=== PATIENT | female | born 1995 | race American Indian/Alaskan Native ===

== ENCOUNTER 2017-08-10 19:31 | Inpatient (IN) | payer MEDICAID ==
[2017-08-10] MEDS ORDERED: LACTATED RINGERS 1,000 ML ONE (22:10)
[2017-08-10] MEDS ORDERED: SUBLIMAZE IV PRN (22:30)
[2017-08-10] MEDS ORDERED: STADOL IV PRN (22:30)
[2017-08-10] MEDS ORDERED: AMBIEN PO PRN (22:30)
[2017-08-10] MEDS: PITOCin/NS 30 UNIT/500ML 30 UNITS/500 ML BAG IV SCH (22:52)
[2017-08-10] MEDS: LACTATED RINGERS 1,000 ML IV SCH (22:53)
[2017-08-10 22:56] LABS: Hematocrit 34.8 % (30.3-42.9); Hemoglobin 11.5 gm/dl (10.1-14.3); Mean Corpuscular HGB Conc 33 % (30-34); Mean Corpuscular Hemoglobin 29 pg (28-32); Mean Corpuscular Volume 87 fl (79-97); Platelet Count 183 K/mm3 (140-440); Red Cell Distribution Width 14.4 % (13.2-15.2)
[2017-08-10] MEDS ORDERED: PITOCin/NS 20 UNIT/1000ML DRIP 20 UNITS/1,000 ML BAG IV SCH (23:00)
[2017-08-11] MEDS: LACTATED RINGERS 1,000 ML IV SCH ×3 (02:21→17:52)
[2017-08-11] MEDS: PITOCin/NS 30 UNIT/500ML 30 UNITS/500 ML BAG IV SCH ×5 (07:39→17:58)
[2017-08-11] MEDS ORDERED: NARCAN 2 MG/2 ML IV PRN (13:34)
[2017-08-11] MEDS ORDERED: ePHEDrine SULFATE IV PRN (13:34)
--- NOTE | 2017-08-11 13:35 | Anesthesia Consultation ---
Anesthesia Consult and Med Hx Date of service: 08/11/17 - Airway Anesthetic Teeth Evaluation: Good ROM Head & Neck: Adequate Mental/Hyoid Distance: Adequate Mallampati Class: Class II Intubation Access Assessment: Probably Good - Pulmonary Exam CTA: Yes - Cardiac Exam Cardiac Exam: RRR - Pre-Operative Health Status ASA Pre-Surgery Classification: ASA2 Proposed Anesthetic Plan: Epidural - Pulmonary Hx Asthma: No COPD: No Hx Pneumonia: No - Cardiovascular System Hx Hypertension: No - Central Nervous System Hx Seizures: No Hx Psychiatric Problems: No - Endocrine Hx Renal Disease: No Hx End Stage Renal Disease: No Hx Hypothyroidism: No Hx Hyperthyroidism: No - Hematic Hx Anemia: No Hx Sickle Cell Disease: No - Other Systems Hx Alcohol Use: No - Additional Comments Anesthesia Medical History Comments: labor epidural
[2017-08-11] MEDS ORDERED: MARCAINE 0.25% INFILTRATI ONE (13:41)
[2017-08-11] MEDS ORDERED: fentaNYL-BUPIV 2 MCG/ML-0.125% 200 MCG/100 ML BAG EPIDURAL SCH (14:00)
--- NOTE | 2017-08-11 17:06 | History and Physical Report ---
History of Present Illness Date of examination: 08/11/17 Date of admission: 08/10/17 19:31 Chief complaint: I'm here to have my baby History of present illness: Patient is a 22 year old who presents for post dates induction at 41.1 weeks with EDC 08/03/2017. She has had an uncomplicated course. Her labs are negative. She is GBS negative Past History Past Medical History: no pertinent history Past Surgical History: no surgical history Social history: single, other (teen ) - Obstetrical History Expected Date of Delivery: 08/03/17 Actual Gestation: 41 Week(s) 1 Day(s) : 1 Number of Living Children: 0 Medications and Allergies Allergies Allergy/AdvReac Type Severity Reaction Status Date / Time No Known Allergies Allergy Unverified 08/10/17 19:37 Home Medications Medication Instructions Recorded Confirmed Last Taken Type No Known Home Medications [No 08/10/17 08/10/17 Unknown History Reported Home Medications] Active Meds: Active Medications Butorphanol Tartrate (Stadol) 2 mg IV Q2H PRN PRN Reason: Labor Pain Ephedrine Sulfate (Ephedrine Sulfate) 10 mg IV Q2M PRN PRN Reason: Hypotension Fentanyl (Sublimaze) 100 mcg IV Q2H PRN PRN Reason: Labor Pain Lactated Ringer's (Lactated Ringers) 1,000 mls @ 125 mls/hr IV DIRECT SESAR Last Admin: 08/11/17 07:38 Dose: 125 mls/hr Oxytocin/Sodium Chloride (Pitocin/Ns 20 Unit/1000ml Drip) 20 units in 1,000 mls @ 125 mls/hr IV DIRECT SESAR Oxytocin/Sodium Chloride (Pitocin/Ns 30 Unit/500ml) 30 units in 500 mls @ 2 mls /hr IV TITR SESAR PRN Reason: Protocol Last Admin: 08/11/17 17:00 Dose: 26 mls/hr, 26 mls/hr Fentanyl/Bupivacaine/Sodium Chlor (Fentanyl-Bupiv 2 Mcg/Ml-0.125%) 200 mcg in 100 mls @ 12 mls/hr EPIDURAL TITR SESAR PRN Reason: Protocol Last Admin: 08/11/17 15:00 Dose: 12 mls/hr Naloxone HCl (Narcan 2 Mg/2 Ml) 0.2 mg IV Q5M PRN PRN Reason: Respiratory sedation Zolpidem Tartrate (Ambien) 10 mg PO QHS PRN PRN Reason: Insomnia Last Admin: 08/10/17 22:55 Dose: 10 mg Review of Systems All systems: negative Genitourinary: contractions - Vital Signs Vital signs: Vital Signs Pulse BP 107 H 131/73 08/10/17 20:21 08/10/17 20:21 Temp Pulse Resp BP Pulse Ox 97.6 F 104 H 18 115/68 99 08/11/17 16:00 08/11/17 16:59 08/11/17 16:00 08/11/17 16:52 08/11/17 16:59 - Physical Exam Breasts: Cardiovascular: Regular rate, Normal S1, Normal S2 Lungs: Positive: Clear to auscultation, Normal air movement Abdomen: Positive: normal appearance, soft, normal bowel sounds. Negative: distention, tenderness Genitourinary (Female): Positive: normal external genitalia, normal perenium Vulva: both: normal Vagina: Positive: normal moisture. Negative: discharge Cervix: Negative: lesion, discharge Uterus: Positive: normal size, normal contour Adnexa: both: normal Anus/Rectum: Positive: normal perianal skin, heme negative. Negative: rectal mass, hemorrhoids Extremities: Deep Tendon Reflex Grade: Normal +2 - Obstetrical FHR: auscultation normal Cervical Dilatation: 1.5 Cervical Effacement Percentage: 50 station: -2 Results Result Diagrams: 08/10/17 22:00 All other labs normal. Assessment and Plan IUP at 41.1 weeks here for induction of labor. Was planning to place cytotec, but patient was having too many contractions per nursing staff. Therefore will start overnight pitocin and begin to increase at 5am
--- NOTE | 2017-08-11 17:32 | Event Note ---
Date: 08/11/17 12:45 pm- Patient contraction [id number], but not feeling them. AROM for meconium stained fluid. 2.5/-2
[2017-08-11] MEDS ORDERED: DULCOLAX PR PRN (21:59)
[2017-08-11] MEDS ORDERED: NORCO 5/325 PO PRN (21:59)
[2017-08-11] MEDS ORDERED: PHENERGAN PR PRN (21:59)
[2017-08-11] MEDS ORDERED: ZOFRAN IV PRN (21:59)
[2017-08-11] MEDS ORDERED: BENADRYL PO PRN (21:59)
[2017-08-11] MEDS ORDERED: TUCKS PAD TP PRN (21:59)
[2017-08-11] MEDS ORDERED: MILK OF MAGNESIA PO PRN (21:59)
[2017-08-11] MEDS ORDERED: LANSINOH TP PRN (21:59)
[2017-08-11] MEDS ORDERED: TYLENOL PO PRN (21:59)
[2017-08-11] MEDS ORDERED: PHENERGAN PO PRN (21:59)
--- NOTE | 2017-08-11 21:59 | Procedure Note ---
OB Delivery Note - Delivery Date of Delivery: 08/11/17 Surgeon: CHRISTIE HUGHES Estimated blood loss: 200cc - Vaginal Delivery presentation: vertex Delivery position: OA Intrapartum events: meconium Delivery augmentation: pitocin Delivery monitor: external FHT Route of delivery: Delivery placenta: spontaneous Delivery cord: 3 umbilical vessels Episiotomy: none Delivery laceration: none Anesthesia: epidural Delivery comments: Patient progressed to C/C/+1 and pushed to deliver a liveborn male infant with apgars of 8/9. After delivery of the head, the shoulders delivered without difficulty. The cord was clamped and cut and passed to peds in attendance secondary to meconium stained fluid. The placenta delivered spontaneously intact with a 3VC. No lacerations noted. Weight 7lbs 8oz. EBL 200ml - A at 1 minute: 8 at 5 minutes: 9 Infant Gender: Male (weight 7lbs 8oz)
[2017-08-11] MEDS ORDERED: SODIUM CHLORIDE FLUSH SYRINGE 10 ML IV NR (22:00)
--- NOTE | 2017-08-12 08:03 | Progress Note ---
Assessment and Plan - Patient Problems (1) Post-term Current Visit: Yes Status: Acute Plan to address problem: Patient doing well Routine care Subjective - Subjective Date of service: 08/12/17 Interval history: The patient is doing well. She reports feeling tired. Her pain is well controlled. Patient reports: appetite normal, voiding normally, pain well controlled : doing well Objective - Vital Signs Latest vital signs: Vital Signs Temp Pulse Resp BP BP Pulse Ox 08/12/17 07:44 98.7 F 111 H 20 103/62 08/12/17 04:35 98.8 F 98 H 18 121/81 99 08/11/17 23:30 98.3 F 75 18 111/57 98 08/11/17 22:48 108 H 100 08/11/17 22:43 106 H 99 08/11/17 22:41 96 H 142/75 08/11/17 22:38 102 H 99 08/11/17 22:33 102 H 100 08/11/17 22:28 104 H 99 08/11/17 22:25 181 H 103/37 08/11/17 22:23 107 H 99 08/11/17 22:18 104 H 100 08/11/17 22:13 104 H 98 08/11/17 22:10 107 H 137/63 08/11/17 22:08 109 H 100 08/11/17 22:03 111 H 97 08/11/17 21:58 113 H 99 08/11/17 21:55 112 H 132/56 08/11/17 21:53 115 H 98 08/11/17 21:48 108 H 100 08/11/17 21:47 90 61 L 08/11/17 21:45 98.3 F 08/11/17 21:43 107 H 99 08/11/17 21:38 131 H 98 08/11/17 21:35 25 L 79 L 08/11/17 21:32 84 98 08/11/17 21:27 79 99 08/11/17 21:23 117 H 92 08/11/17 21:22 88 100 08/11/17 21:17 100 H 100 08/11/17 21:12 104 H 100 08/11/17 21:07 90 130/83 100 08/11/17 21:02 92 H 100 08/11/17 20:57 109 H 100 02/23/18 20:52 105 H 100 0218 20:50 107 H 76 L 0218 20:47 108 H 100 0218 20:42 117 H 85 0218 20:37 104 H 99 0218 20:32 101 H 100 18 20:27 102 H 100 18 20:22 98 H 100 18 20:17 94 H 100 18 20:12 85 100 18 20:07 95 H 100 18 20:02 88 100 18 19:57 87 100 18 19:52 94 H 100 18 19:47 91 H 100 18 19:42 109 H 100 18 19:37 85 126/79 100 18 19:32 94 H 99 18 19:27 91 H 100 18 19:24 97.1 F L 92 H 20 121/79 08/11/17 19:22 97 H 98 18 19:21 96 H 121/79 18 19:17 90 100 18 19:12 87 99 18 19:07 88 123/81 99 18 19:02 96 H 99 18 18:57 93 H 100 18 18:52 88 129/76 100 18 18:47 88 100 18 18:42 86 100 18 18:37 90 136/72 100 0218 18:32 86 100 0218 18:30 97.6 F 18 08/11/17 18:27 88 100 0218 18:22 86 121/79 100 18 18:17 83 99 0218 18:12 80 100 0218 18:08 94 H 110/59 0218 18:07 86 100 0218 18:02 101 H 100 0218 17:55 95 H 98 02/18 17:53 113 H 160/75 0218 17:50 94 H 98 02/18 17:45 93 H 98 02/23/18 17:39 86 98 02/18 17:37 82 118/68 02/18 17:34 84 98 02/18 17:29 78 98 02/18 17:24 88 97 02/18 17:21 86 116/67 02/18 17:19 91 H 98 02/18 17:14 86 98 02/18 17:09 84 98 0218 17:06 82 117/66 0218 17:04 84 99 0218 16:59 104 H 99 0218 16:54 85 99 0218 16:52 82 115/68 0218 16:49 85 99 0218 16:44 87 100 18 16:39 95 H 100 0218 16:38 88 118/60 0218 16:34 93 H 99 18 16:29 82 97 18 16:24 90 99 18 16:23 88 115/64 0218 16:19 82 99 18 16:15 97.6 F 18 18 16:14 84 99 18 16:09 84 100 18 16:07 85 118/75 18 16:05 107 H 66 L 18 16:04 86 99 18 16:00 97.6 F 18 18 15:59 91 H 100 18 15:54 99 H 100 0218 15:52 91 H 111/65 0218 15:49 94 H 99 02/18 15:44 96 H 98 0218 15:39 88 99 02/18 15:38 90 109/61 0218 15:34 92 H 99 02/18 15:29 89 99 02/18 15:24 104 H 99 02/18 15:21 103 H 106/66 02/18 15:19 98 H 100 02/18 15:16 97 H 93 0218 15:14 109 H 100 0218 15:09 93 H 99 0218 15:06 93 H 111/68 02 15:04 99 H 113/65 99 02 15:02 100 H 120/72 02 15:00 96 H 113/69 02 14:59 96 H 99 02 14:58 97 H 112/68 02 14:56 99 H 115/69 02 14:54 97 H 115/69 99 02 14:52 94 H 112/68 02 14:50 99 H 110/69 02 14:49 96 H 99 08/11/17 14:48 94 H 115/69 02 14:46 97 H 109/67 02 14:45 98 H 104/62 02 14:44 107 H 99 08/11/17 14:42 103 H 106/63 02 14:40 121 H 104/59 02 14:39 121 H 99 08/11/17 14:38 118 H 107/62 02 14:34 111 H 99 08/11/17 14:25 108 H 105/55 02 14:23 116 H 108/59 99 08/11/17 14:21 113 H 115/57 02 14:19 123 H 117/74 02 14:18 117 H 99 08/11/17 14:17 116 H 118/64 02 14:16 127 H 118/64 08/11/17 14:13 114 H 128/68 99 08/11/17 14:11 110 H 127/59 02 14:10 125/64 02 14:08 108 H 99 08/11/17 14:07 107 H 124/70 02 14:03 109 H 99 08/11/17 13:58 111 H 99 08/11/17 13:56 114 H 94 02 13:54 109 H 137/69 08/11/17 13:53 107 H 100 08/11/17 13:46 101 H 99 08/11/17 13:41 104 H 96 08/11/17 13:25 90 105/57 02 13:09 89 111/57 02/23/18 12:59 90 98 0218 12:54 86 104/58 97 0218 12:49 90 98 0218 12:44 88 98 0218 12:40 90 112/59 0218 12:39 86 100 18 12:32 85 99 18 12:27 81 99 0218 12:25 83 103/56 0218 12:22 78 99 0218 12:17 87 99 0218 12:12 87 99 0218 12:09 86 114/70 18 12:07 89 99 02 12:02 92 H 100 08/11/17 12:00 97.4 F L 18 08/11/17 11:57 98 H 100 08/11/17 11:52 91 H 98 08/11/17 11:47 82 98 08/11/17 11:42 81 98 08/11/17 11:39 85 105/54 08/11/17 11:37 98 H 100 18 11:32 87 99 18 11:27 88 99 18 11:22 94 H 100 18 11:17 97 H 99 08/11/17 11:12 87 97 18 11:09 78 100/57 18 11:07 81 97 18 11:02 89 97 18 10:57 83 98 18 10:55 84 103/56 0218 10:52 84 97 18 10:47 86 97 18 10:42 86 97 18 10:40 85 104/56 0218 10:37 94 H 71 L 08/11/17 10:32 84 98 0218 10:27 87 98 0218 10:24 93 H 112/69 0218 10:22 89 99 0218 10:17 91 H 98 18 10:12 92 H 97 18 10:09 87 119/70 18 10:07 94 H 97 18 10:02 89 98 0218 10:01 94 H 91 08/11/17 09:55 92 H 99 08/11/17 09:54 88 114/67 08/11/17 09:21 91 H 99 08/11/17 08:54 94 H 119/76 08/11/17 08:51 94 H 100 08/11/17 08:46 100 H 99 08/11/17 08:41 99 H 100 08/11/17 08:40 99 H 120/73 08/11/17 08:36 101 H 100 08/11/17 08:31 104 H 100 08/11/17 08:26 98 H 100 08/11/17 08:24 95 H 129/75 08/11/17 08:21 111 H 99 08/11/17 08:16 96 H 100 08/11/17 08:11 98 H 100 08/11/17 08:09 97 H 119/76 08/11/17 08:06 96 H 100 Intake and Output 08/11/17 08/12/17 08/12/17 22:59 06:59 14:59 Intake Total 1143.166 480 Output Total 1200 400 Balance -56.834 80 Intake: IV 1143.166 Lactated Ringers 1,000 ml 1000 @ 125 mls/hr IV DIRECT SESAR Rx#:[id number] PITOCin/NS 30 UNIT/500ML 143.166 30 units In 500 ml @ 2 mls/hr IV TITR SESAR Rx#: [id number] Oral 480 Output: Urine 1200 400 Void 1200 400 Other: Total, Intake Amount 240 Total, Output Amount 1200 400 # Voids Void 1 1 Estimated Blood Loss 200 - Exam Abdomen: Present: normal appearance, soft Uterus: Present: normal, firm
--- NOTE | 2017-08-12 08:04 | Discharge Summary ---
Providers - Providers Date of Admission: 08/10/17 19:31 Date of discharge: 08/13/17 Attending physician: DEVORAH SEPULVEDA Primary care physician: DEVORAH SEPULVEDA Hospitalization Reason for admission: induction of labor Delivery: Episiotomy: none complications: none Discharge diagnosis: IUP at term delivered [place] baby: male Hospital course: The patient was admitted for induction of labor secondary to a postterm delivery. She had a normal spontaneous vaginal delivery. course was unremarkable. Condition at discharge: Good Disposition: DC-01 TO HOME OR SELFCARE - Discharge Diagnoses (1) Post-term Status: Acute Plan - Discharge Medications Prescriptions: HYDROcodone/APAP 5-325 [[place] 5/325] 1 each PO Q6HR PRN #30 tablet PRN Reason: Pain Ibuprofen [Motrin] 800 mg PO Q8HR PRN #60 tablet PRN Reason: Pain - Provider Discharge Summary Activity: no sex for 6 weeks, no heavy lifting 4 weeks, no strenuous exercise Diet: routine Instructions: routine Additional instructions: [] Smoking cessation referral if applicable(refer to patient education folder for contact #) [] Refer to [facility] Booklet Call your doctor immediately for: * Fever > 100.5 * Heavy vaginal bleeding ( >1 pad per hour) * Severe persistent headache * Shortness of breath * Reddened, hot, painful area to leg or breast * Follow-up 4 weeks - Follow up plan
[2017-08-12 09:44] LABS: Hematocrit 30.9 % (30.3-42.9); Hemoglobin 10.5 gm/dl (10.1-14.3)
[2017-08-12] MEDS: MOTRIN PO SCH ×2 (10:22→16:39)
[2017-08-13 08:12] VITALS: BP 103/54
[2017-08-13] MEDS: MOTRIN PO SCH (10:10)
== END 2017-08-13 17:15 | disposition home or self-care (01) | DRG 775 ==
LOC: LD 19:31 → OB 08-11 23:13
PROVIDERS: ADMIT Obstetrics & Gynecology; ATTEND Obstetrics & Gynecology
PROC: 10E0XZZ Delivery of Products of Conception, External Approach (ICD-10-PCS; principal; 2017-08-11)
PROC: 3E0R3BZ Introduction of Anesthetic Agent into Spinal Canal, Percutaneous Approach (ICD-10-PCS; 2017-08-11)
PROC: 00HU33Z Insertion of Infusion Device into Spinal Canal, Percutaneous Approach (ICD-10-PCS; 2017-08-11)
DX: O77.0 Labor and delivery complicated by meconium in amniotic fluid (principal); O48.0 Post-term pregnancy; Z37.0 Single live birth; Z3A.41 41 weeks gestation of pregnancy
CPT/HCPCS: 36415; 85014; 85018; 85027; 86592; 86850; 86900; 86901; J2590; J7120